=== PATIENT | female | born 1985 | race African-American/Black ===

== ENCOUNTER 2017-10-30 17:52 | Emergency (ER) | payer OTHER ==
[~2017-10-30] VITALS: Ht 170.2 cm; Wt 78.0 kg
[2017-10-30 18:36] LABS: BASOPHILS % 1.2 % (0.0-2.0); EOSINOPHILS % 2.7 % (0.0-5.0); HEMOGLOBIN. 12.3 g/dL (12.0-16.0); LYMPHOCYTES % 38.2 % (20.0-50.0); MEAN CORPUSCULAR HEMOGLOBIN 28.3 pg (28.0-32.0); MEAN CORPUSCULAR VOLUME 87.2 fL (81.0-99.0); MEAN PLATELET VOLUME 8.1 fl (7.4-10.4); NEUTROPHILS % 50.9 % (40.0-76.0); PLATELET 289 x1000/uL (130-400); RED BLOOD CELL COUNT 4.35 mill/uL (4.2-5.4); RED CELL DISTRIBUTION WIDTH 14.4 % (11.6-14.6)
[2017-10-30 18:45] LABS: CHLORIDE 102 mEq/L (98-107)
[2017-10-30 18:59] LABS: CARBAMAZEPINE < 0.5 ug/mL (4-12); PHENOBARBITAL < 2.1 ug/mL (15.0-40.0); VALPROIC ACID < 3.0 ug/mL (50-100)
[2017-10-30] MEDS ORDERED: KETOROLAC 15MG/ML VIAL IV ONE (19:15)
[2017-10-30] MEDS ORDERED: LORAZEPAM 1MG TABLET PO ONE (19:15)
[2017-10-30] MEDS ORDERED: POTASSIUM CHLORIDE 20MEQ TABLET SR PO ONE (19:15)
[2017-10-30] MEDS ORDERED: KCL 10MEQ/50ML PREMIX 50 ML IV ONE (19:15)
[2017-10-30] MEDS ORDERED: PHENOBARBITAL SODIUM 65MG/ML 1ML IV ONE (19:15)
[2017-10-30 20:12] LABS: CLARITY URINE CLEAR (CLEAR); COLOR URINE YELLOW (YELLOW); KETONES URINE NEGATIVE (NEGATIVE); LEUKOCYTE ESTERASE URINE NEGATIVE (NEGATIVE); NITRITE URINE NEGATIVE (NEGATIVE); OCCULT BLOOD URINE NEGATIVE (NEGATIVE); PH URINE 6.5 (4.5-8.0); PROTEIN URINE NEGATIVE (NEGATIVE); SPECIFIC GRAVITY URINE 1.001 (1.005-1.030); UROBILINOGEN URINE 0.2 E.U./dL (0.2-1.0)
[2017-10-30] MEDS ORDERED: ALBUTEROL (0.083%) 2.5MG/3ML NEB HHN ONE (20:45)
[2017-10-30] MEDS ORDERED: HYDROCODONE/ACETAMINOPHEN 5/325MG TABLET PO ONE (21:00)
[2017-10-30 21:18] VITALS: BP 124/79
== END 2017-10-30 22:25 | disposition home or self-care (01) ==
LOC: ER 17:52
DX: R56.9 Unspecified convulsions (principal); E87.6 Hypokalemia; Z98.890 Other specified postprocedural states
CPT/HCPCS: 36415; 71045; 80053; 80156; 80165; 80184; 80185; 81003; 81025; 85025; 96365; 96375; 99285; J2560; J3480; J7040; Z7610; J1885; J7611